=== PATIENT | male | born 1990 | race Caucasian/White ===

== ENCOUNTER 2017-11-25 23:49 | Observation (INO) | payer OTHER ==
[2017-11-26] MEDS ORDERED: ONDANSETRON PF 4 MG/2 ML VIAL. (00:41)
[2017-11-26] MEDS: ONDANSETRON PF 4 MG/2 ML VIAL. IV (00:45)
[2017-11-26 01:18] LABS: ADD MAN DIFF? YES; BASO # 0.1 x10^3/uL (0.0-0.2); BASO % 0 % (0-3); EOS # 0.1 x10^3/uL (0.0-0.7); EOS % 1 % (0-3); HEMOGLOBIN 13.9 g/dL (13.0-17.5); LYMPH # 1.6 x10^3/uL (1.0-4.8); LYMPH % 11 % (24-48); MEAN CORPUSCULAR HEMOGLOBIN 29 pg (25-35); MEAN CORPUSCULAR HGB CONC 35 g/dL (31-37); MEAN CORPUSCULAR VOLUME 83 fL (79-100); MONO # 0.5 x10^3/uL (0.0-1.1); MONO % 3 % (0-9); NEUT # 12.7 x10^3uL (1.8-7.7); NEUT % 85 % (31-73); PLATELET COUNT 189 x10^3/uL (140-400); RED CELL DISTRIBUTION WIDTH 12.5 % (11.5-14.5)
[2017-11-26 01:29] LABS: ANION GAP 12 (6-14); BLOOD UREA NITROGEN 26 mg/dL (8-26); CARBON DIOXIDE 22 mmol/L (21-32); CHLORIDE 106 mmol/L (98-107); CREATININE 0.8 mg/dL (0.7-1.3); GLUCOSE 98 mg/dL (70-99); POTASSIUM 3.8 mmol/L (3.5-5.1); SODIUM 140 mmol/L (136-145)
[2017-11-26 01:35] LABS: INR 1.2 (0.8-1.1); PARTIAL THROMBOPLASTIN TIME 26 SEC (24-38); PROTHROMBIN TIME PATIENT 14.6 SEC (11.7-14.0)
[2017-11-26] MEDS: IV NORMAL SALINE 1000ML BAG 1,000 ML IV (01:35)
[2017-11-26 01:37] LABS: % BANDS 1 % (0-9); % EOS 2 % (0-5); % LYMPHS 20 % (24-48); % MONOS 2 % (0-10); % SEGS 75 % (35-66); PLT ESTIMATE ADEQUATE (ADEQUATE)
[2017-11-26] MEDS: PANTOPRAZOLE IV PUSH 40 MG VIAL. IVP (01:40)
[2017-11-26] MEDS: PANTOPRAZOLE SODIUM IV DRIP 80 MG in IV NORMAL SALINE 100ML 100 ML IV ×2 (01:40→09:42)
[2017-11-26] MEDS ORDERED: ONDANSETRON PF 4 MG/2 ML VIAL. IV ×2 (01:45→08:30)
[2017-11-26] MEDS ORDERED: MORPHINE SULFATE 4 MG/ML DISP.SYRIN. IV (01:45)
[2017-11-26] MEDS ORDERED: chlordiazePOXIDE HCL 25 MG CAPSULE PO (08:30)
[2017-11-26] MEDS ORDERED: ACETAMINOPHEN 500 MG TABLET PO (08:30)
[2017-11-26] MEDS ORDERED: NICOTINE 21MG PATCH. TD (08:30)
[2017-11-26 11:01] LABS: HEMATOCRIT 36.3 % (39.0-53.0); HEMOGLOBIN 12.8 g/dL (13.0-17.5); MEAN CORPUSCULAR HGB CONC 35 g/dL (31-37)
[2017-11-27] MEDS ORDERED: PANTOPRAZOLE 40 MG TABLET.DR. PO (07:30)
== END 2017-11-26 13:25 | disposition home or self-care (01) ==
LOC: ER 23:49 → 6 SOUTH 11-26 01:30 → 5 SOUTH 11-26 02:58
DX: K92.0 Hematemesis (principal); K92.1 Melena; F17.210 Nicotine dependence, cigarettes, uncomplicated; Z82.49 Family history of ischemic heart disease and other diseases of the circulatory system; F11.90 Opioid use, unspecified, uncomplicated; F12.90 Cannabis use, unspecified, uncomplicated; F14.90 Cocaine use, unspecified, uncomplicated
CPT/HCPCS: 36415; 80048; 85007; 85014; 85018; 85025; 85610; 85730; 96365; 96366; 96374; 96375; 99285-25; C9113; G0378; G0379; J2405; J7030